=== PATIENT | male | born 2000 | race African-American/Black ===

== ENCOUNTER 2024-03-04 21:59 | Emergency (ER) | payer MEDICAID, SELFPAY ==
[2024-03-04 22:51] VITALS: BP 119/75; PULSE 71; RESP 18; TEMP 36.8; O2SAT 100; BMI 23.2
--- NOTE | 2024-03-04 23:02 | MHC.EDTECH ---
Patient brought into triage,sars/flu/rsv collected sent to lab.
[2024-03-04 23:46] LABS: Influenza A PCR NEGATIVE (Negative); Influenza B PCR NEGATIVE (Negative); Resp Syncy Virus RNA Qual PCR POSITIVE (Negative); SARS COV2 PCR INHOUSE NEGATIVE (Negative)
== END 2024-03-05 02:33 | disposition left against medical advice (07) ==
PROVIDERS: Emergency Provider Emergency Medicine Emergency Medical Services
DX: J32.9 Chronic sinusitis, unspecified (principal); Z03.818 Encounter for observation for suspected exposure to other biological agents ruled out
CPT/HCPCS: 0241U; 99281